=== PATIENT | female | born 1940 | race Caucasian/White ===

== ENCOUNTER 2023-04-09 09:31 | Inpatient (IN) | payer MEDICARE ==
[2023-04-09] MEDS ORDERED: methylPREDNISolone Sod Succ/PF 125 MG/2 ML VIAL ONE (10:14)
[2023-04-09] MEDS ORDERED: Albuterol 2.5 MG (3 mL) NEB ONE (10:14)
[2023-04-09 10:23] LABS: #Monocytes 0.9 thou/uL (0.11-0.59); #Neutrophils 7.8 thou/uL (1.40-6.50); %Basophils 0.2 % (0.0-1.0); %Eosinophils 0.1 % (0.0-10.0); %Lymphocytes 16.9 % (21.0-51.0); %Monocytes 8.4 % (0.0-10.0); %Neutrophils 73.9 % (42.0-75.0); Hematocrit 36.7 % (36.0-47.0); Hemoglobin 11.9 g/dL (12.0-16.0); Mean Corpuscular HGB CONC 32.4 g/dL (32.0-36.0); Mean Corpuscular Hemoglobin 30.8 pg (27.0-31.0); Mean Corpuscular Volume 95.1 fl (78.0-98.0); Mean Platelet Volume 9.8 fL (7.4-10.4); Platelet Count 266 10x3/uL (130-400); RBC Distribution Width 15.4 % (11.5-14.5); Red Blood Cell (RBC) Count 3.86 mill/uL (4.20-5.40); White Blood Cell (WBC) Count 10.6 10x3/uL (4.8-10.8)
[2023-04-09] MEDS ORDERED: Ipratropium/Albuterol 3 ML NEB ONE ×2 (10:31→18:20)
[2023-04-09 10:37] LABS: ALT (SGPT) 28 U/L (8-55); AST (SGOT) 49 U/L (5-34); Albumin 3.4 g/dL (3.4-4.8); Alkaline Phosphatase 282 U/L (40-110); Anion Gap 15 mmol/L (10-20); BUN (Urea Nitrogen) 5 mg/dL (9.8-20.1); Calc. Creatinine Clearance 0 mL/min (70-130); Calcium 9.1 mg/dL (7.8-10.44); Carbon Dioxide 28 mmol/L (23-31); Chloride 92 mmol/L (98-107); Estimated GFR 92; Globulin 4.8 g/dL (2.4-3.5); Glucose 98 mg/dL (83-110); Potassium 3.8 mmol/L (3.5-5.1); Protein, Total 8.2 g/dL (5.8-8.1); Sodium 131 mmol/L (136-145)
[2023-04-09 10:39] LABS: Troponin I 0.026 ng/mL (< 0.028)
[2023-04-09] MEDS ORDERED: cefTRIAXone (ROCEPHIN) 2 GM VIAL ONE (10:52)
[2023-04-09] MEDS ORDERED: Azithromycin 500 MG VIAL ONE (10:52)
[2023-04-09] MEDS ORDERED: Sodium Chloride 0.9% 100 ML ONE (10:52)
[2023-04-09 10:55] LABS: SARS-CoV-2 NAA Rapid Test Not Detected (NotDetected)
[2023-04-09] MEDS ORDERED: Ondansetron ODT 4 MG TAB PO PRN (14:02)
[2023-04-09] MEDS ORDERED: Ondansetron PF 4 MG/2 ML Vial IVP PRN (14:02)
[2023-04-09] MEDS ORDERED: Ipratropium/Albuterol 3 ML NEB NEB PRN (14:19)
[2023-04-09 15:49] LABS: Troponin I 0.013 ng/mL (< 0.028)
[2023-04-09 16:35] LABS: Troponin I 0.025 ng/mL (< 0.028)
[2023-04-09] MEDS ORDERED: Ipratropium/Albuterol 3 ML NEB NEB SCH (19:00)
[2023-04-09] MEDS: Ipratropium/Albuterol 3 ML NEB NEB SCH ×3 (19:18→21:46)
[2023-04-09] MEDS: Mometasone 100 MCG HFA INHALER (RT USE) INH SCH (20:03)
[2023-04-09] MEDS: busPIRone HCl 10 MG TAB PO SCH (20:53)
[2023-04-09] MEDS: Metoprolol Tartrate 25 MG TAB PO SCH (20:53)
[2023-04-09] MEDS ORDERED: Non-Formulary Item 1 EACH (Budesonide/Glycopyr/Formoterol [Breztri Aerosphere Inhaler] 10 IH SCH (21:00)
[2023-04-09 21:53] VITALS: BMI 20.4
[2023-04-10] MEDS: Ipratropium/Albuterol 3 ML NEB NEB SCH ×5 (02:15→18:03)
[2023-04-10 05:28] LABS: #Monocytes 0.3 thou/uL (0.11-0.59); #Neutrophils 3.9 thou/uL (1.40-6.50); %Lymphocytes 15.9 % (21.0-51.0); %Monocytes 5.6 % (0.0-10.0); %Neutrophils 77.9 % (42.0-75.0); Hematocrit 34.6 % (36.0-47.0); Hemoglobin 11.1 g/dL (12.0-16.0); Mean Corpuscular HGB CONC 32.1 g/dL (32.0-36.0); Mean Corpuscular Hemoglobin 30.7 pg (27.0-31.0); Mean Corpuscular Volume 95.6 fl (78.0-98.0); Mean Platelet Volume 9.4 fL (7.4-10.4); Platelet Count 259 10x3/uL (130-400); RBC Distribution Width 15.3 % (11.5-14.5); Red Blood Cell (RBC) Count 3.62 mill/uL (4.20-5.40)
[2023-04-10 06:02] LABS: ALT (SGPT) 22 U/L (8-55); AST (SGOT) 30 U/L (5-34); Albumin 2.9 g/dL (3.4-4.8); Alkaline Phosphatase 227 U/L (40-110); Anion Gap 11 mmol/L (10-20); BUN (Urea Nitrogen) 12 mg/dL (9.8-20.1); Bilirubin, Total 0.4 mg/dL (0.2-1.2); Calc. Creatinine Clearance 68 mL/min (70-130); Calcium 8.6 mg/dL (7.8-10.44); Carbon Dioxide 32 mmol/L (23-31); Chloride 97 mmol/L (98-107); Estimated GFR 91; Glucose 172 mg/dL (83-110); Potassium 4.1 mmol/L (3.5-5.1); Protein, Total 6.9 g/dL (5.8-8.1); Sodium 136 mmol/L (136-145)
[2023-04-10] MEDS: Mometasone 100 MCG HFA INHALER (RT USE) INH SCH ×2 (07:43→18:04)
[2023-04-10] MEDS: Enoxaparin 40 MG (0.4 mL) SYRINGE SC SCH (08:51)
[2023-04-10] MEDS: busPIRone HCl 10 MG TAB PO SCH ×2 (08:52→20:12)
[2023-04-10] MEDS: Amlodipine 5 MG TAB PO SCH (08:52)
[2023-04-10] MEDS: predniSONE 20 MG TAB PO SCH (08:52)
[2023-04-10] MEDS: Azithromycin 250 MG TAB PO SCH (08:52)
[2023-04-10] MEDS: Metoprolol Tartrate 25 MG TAB PO SCH ×2 (08:52→20:12)
[2023-04-10] MEDS: HYDROcodone/Acetaminophen 10/325 mg Tablet PO PRN ×2 (10:53→20:11)
[2023-04-10] MEDS ORDERED: cefTRIAXone\\ROCEPHIN 1 GM in Sodium Chloride 0.9% 100 ML IVPB SCH (14:15)
[2023-04-11] MEDS: Ipratropium/Albuterol 3 ML NEB NEB SCH ×4 (07:42→22:09)
[2023-04-11] MEDS: Mometasone 100 MCG HFA INHALER (RT USE) INH SCH ×2 (07:43→18:47)
[2023-04-11] MEDS ORDERED: guaiFENesin 200 MG TAB PO PRN (08:52)
[2023-04-11] MEDS ORDERED: Benzonatate 100 MG CAP PO PRN (08:53)
[2023-04-11] MEDS: Guaifenesin DM 100-10/5 ML UDCUP PO PRN ×2 (13:41→23:55)
[2023-04-11] MEDS: guaiFENesin 200 MG TAB PO SCH ×4 (13:41→20:32)
[2023-04-11] MEDS: HYDROcodone/Acetaminophen 10/325 mg Tablet PO PRN (16:06)
[2023-04-11] MEDS: Azithromycin 250 MG TAB PO SCH (18:21)
[2023-04-11] MEDS: predniSONE 20 MG TAB PO SCH (18:21)
[2023-04-11] MEDS: Amlodipine 5 MG TAB PO SCH (18:21)
[2023-04-11] MEDS: Metoprolol Tartrate 25 MG TAB PO SCH ×2 (18:22→20:32)
[2023-04-11] MEDS: Enoxaparin 40 MG (0.4 mL) SYRINGE SC SCH (18:22)
[2023-04-11] MEDS: busPIRone HCl 10 MG TAB PO SCH ×2 (18:22→20:32)
[2023-04-12] MEDS: guaiFENesin 200 MG TAB PO SCH ×4 (04:04→13:18)
[2023-04-12 05:57] LABS: #Monocytes 1.2 thou/uL (0.11-0.59); #Neutrophils 6.9 thou/uL (1.40-6.50); %Basophils 0.1 % (0.0-1.0); %Eosinophils 0.1 % (0.0-10.0); %Lymphocytes 24.6 % (21.0-51.0); %Monocytes 11.2 % (0.0-10.0); %Neutrophils 63.2 % (42.0-75.0); Hematocrit 37.1 % (36.0-47.0); Hemoglobin 11.8 g/dL (12.0-16.0); Mean Corpuscular HGB CONC 31.8 g/dL (32.0-36.0); Mean Corpuscular Hemoglobin 30.2 pg (27.0-31.0); Mean Corpuscular Volume 94.9 fl (78.0-98.0); Mean Platelet Volume 9.2 fL (7.4-10.4); Platelet Count 333 10x3/uL (130-400); RBC Distribution Width 15.2 % (11.5-14.5); Red Blood Cell (RBC) Count 3.91 mill/uL (4.20-5.40); White Blood Cell (WBC) Count 10.9 10x3/uL (4.8-10.8)
[2023-04-12 06:32] LABS: ALT (SGPT) 32 U/L (8-55); AST (SGOT) 51 U/L (5-34); Albumin 3.1 g/dL (3.4-4.8); Alkaline Phosphatase 230 U/L (40-110); Anion Gap 9 mmol/L (10-20); BUN (Urea Nitrogen) 13 mg/dL (9.8-20.1); Bilirubin, Total 0.6 mg/dL (0.2-1.2); Calc. Creatinine Clearance 70 mL/min (70-130); Calcium 8.6 mg/dL (7.8-10.44); Carbon Dioxide 33 mmol/L (23-31); Chloride 97 mmol/L (98-107); Estimated GFR 91; Globulin 3.9 g/dL (2.4-3.5); Glucose 101 mg/dL (83-110); Potassium 3.6 mmol/L (3.5-5.1); Sodium 135 mmol/L (136-145)
[2023-04-12] MEDS: Mometasone 100 MCG HFA INHALER (RT USE) INH SCH (07:16)
[2023-04-12] MEDS: Ipratropium/Albuterol 3 ML NEB NEB SCH ×2 (07:17→14:10)
[2023-04-12] MEDS: Enoxaparin 40 MG (0.4 mL) SYRINGE SC SCH (09:38)
[2023-04-12] MEDS: Amlodipine 5 MG TAB PO SCH (09:39)
[2023-04-12] MEDS: predniSONE 20 MG TAB PO SCH (09:39)
[2023-04-12] MEDS: Azithromycin 250 MG TAB PO SCH (09:39)
[2023-04-12] MEDS: busPIRone HCl 10 MG TAB PO SCH (09:40)
[2023-04-12] MEDS: Metoprolol Tartrate 25 MG TAB PO SCH (09:40)
[2023-04-12 15:29] VITALS: BP 142/68; TEMP 97.6
== END 2023-04-12 18:20 | disposition home or self-care (01) | DRG 193 ==
LOC: ERS 09:31 → ERHOLD 12:51 → 2SW 20:26 → OBSVTOIN 04-10 11:22
PROVIDERS: ADMIT Emergency Medicine; ATTEND Emergency Medicine
DX: J18.9 Pneumonia, unspecified organism (principal); J96.01 Acute respiratory failure with hypoxia; E87.1 Hypo-osmolality and hyponatremia; J44.1 Chronic obstructive pulmonary disease with (acute) exacerbation; E46 Unspecified protein-calorie malnutrition; M54.50 Low back pain, unspecified; I11.0 Hypertensive heart disease with heart failure; I50.9 Heart failure, unspecified; Z11.52 Encounter for screening for COVID-19; G89.29 Other chronic pain; F41.8 Other specified anxiety disorders; R74.01 Elevation of levels of liver transaminase levels; Z88.0 Allergy status to penicillin; Z91.013 Allergy to seafood; Z88.8 Allergy status to other drugs, medicaments and biological substances; Z68.20 Body mass index [BMI] 20.0-20.9, adult; Z79.899 Other long term (current) drug therapy; Z90.49 Acquired absence of other specified parts of digestive tract; Z90.710 Acquired absence of both cervix and uterus; Z82.49 Family history of ischemic heart disease and other diseases of the circulatory system; Z87.891 Personal history of nicotine dependence
CPT/HCPCS: 36415; 71045; 80053; 83605; 83880; 84145; 84484; 85025; 87040; 93005; 93306; 94640; 94664; 96365; 96367; 96372; 96375; G0378; J0456; J0696; J1650; J2930; J3490; J7512; J7611; J7620

== ENCOUNTER 2023-06-03 19:43 | Inpatient (IN) | payer MEDICARE ==
[2023-06-03 20:54] LABS: Bacteria/HPF 2+ HPF (None Seen); Bilirubin Negative (Negative); Blood, Urine Negative (Negative); CAUTI Indications for Culture Alt mental st,lethar; Clarity Clear (Clear); Glucose, Urine (Dipstick) Normal (Negative); Ketone, Urine 20 mg/dL (Negative); Leukocyte Negative Leu/uL (Negative); Mucous/LPF Rare LPF (<2+); Nitrite Negative (Negative); Protein, Urine (Dipstick) 30 mg/dL (Neg-Trace); RBC/HPF 0-3 HPF (0-3); Specific Gravity, Urine 1.019 (1.002-1.036); Squamous Epithelial None Seen HPF (0-3); WBC/HPF 0-3 HPF (0-3); Yeast-Budding Rare HPF (None Seen); pH, Urine 6.5 (5.0-9.0)
[2023-06-03 21:01] LABS: #Neutrophils 6.4 thou/uL (1.40-6.50); %Basophils 0.2 % (0.0-1.0); %Lymphocytes 18.4 % (21.0-51.0); %Monocytes 10.8 % (0.0-10.0); %Neutrophils 70.3 % (42.0-75.0); Hematocrit 30.1 % (36.0-47.0); Hemoglobin 9.9 g/dL (12.0-16.0); Mean Corpuscular HGB CONC 32.9 g/dL (32.0-36.0); Mean Corpuscular Hemoglobin 31.6 pg (27.0-31.0); Mean Corpuscular Volume 96.2 fl (78.0-98.0); Mean Platelet Volume 10.4 fL (7.4-10.4); Platelet Count 186 10x3/uL (130-400); RBC Distribution Width 14.3 % (11.5-14.5); Red Blood Cell (RBC) Count 3.13 mill/uL (4.20-5.40); White Blood Cell (WBC) Count 9.1 10x3/uL (4.8-10.8)
[2023-06-03 21:12] LABS: Urine Culture Reflex No No
[2023-06-03 21:25] LABS: ALT (SGPT) 19 U/L (8-55); AST (SGOT) 33 U/L (5-34); Alkaline Phosphatase 262 U/L (40-110); Anion Gap 14 mmol/L (10-20); BUN (Urea Nitrogen) 13 mg/dL (9.8-20.1); Bilirubin, Total 1.5 mg/dL (0.2-1.2); Calc. Creatinine Clearance 0 mL/min (70-130); Calcium 8.5 mg/dL (7.8-10.44); Carbon Dioxide 26 mmol/L (23-31); Chloride 95 mmol/L (98-107); Estimated GFR 92; Globulin 3.6 g/dL (2.4-3.5); Glucose 132 mg/dL (83-110); Lipase 29 U/L (8-78); Protein, Total 6.6 g/dL (5.8-8.1); Sodium 132 mmol/L (136-145)
[2023-06-03 21:34] LABS: Critical Call Chem Troponin I NUR.SH13@2134; Troponin I 0.698 ng/mL (< 0.028)
[2023-06-03] MEDS ORDERED: Potassium Chloride 20 MEQ TAB ONE (22:09)
[2023-06-03] MEDS ORDERED: Furosemide 40 MG (4 mL) VIAL ONE (22:09)
[2023-06-03] MEDS ORDERED: Aspirin Chewable 81 MG TAB ONE (22:10)
[2023-06-03] MEDS ORDERED: LevoFLOXacin 750 mg/D5W 150 ml Premix Bag ONE (22:10)
[2023-06-03] MEDS ORDERED: Vancomycin 1 GM/200 ML (FROZEN) BAG ONE (22:10)
[2023-06-03 23:34] LABS: Influenza A by NAA Not Detected (NotDetected); Influenza B by NAA Not Detected (NotDetected); SARS-CoV-2 NAA Rapid Test Not Detected (NotDetected)
[2023-06-03] MEDS ORDERED: Enoxaparin 60 MG (0.6 mL) SYRINGE ONE (23:39)
[2023-06-04] MEDS ORDERED: fentaNYL 50 mcg/mL 1 mL Vial ONE (00:41)
[2023-06-04] MEDS ORDERED: Ipratropium/Albuterol 3 ML NEB NEB PRN (02:23)
[2023-06-04] MEDS ORDERED: Ondansetron ODT 4 MG TAB PO PRN (02:25)
[2023-06-04] MEDS ORDERED: Ondansetron PF 4 MG/2 ML Vial IVP PRN (02:25)
[2023-06-04] MEDS ORDERED: Acetaminophen 650 MG Suppository PR PRN (02:25)
[2023-06-04] MEDS ORDERED: Electrolyte Replacement Protocol 1 EACH FS PRN (02:31)
[2023-06-04 04:00] LABS: Critical Call Chem Troponin I RESULT DECREASING; Troponin I 0.513 ng/mL (< 0.028)
[2023-06-04] MEDS ORDERED: HYDROcodone/Acetaminophen 5/325 mg Tablet ONE ×3 (05:32→14:09)
[2023-06-04] MEDS: HYDROcodone/Acetaminophen 5/325 mg Tablet PO PRN (05:33)
[2023-06-04] MEDS: Cefepime 1 GM in Sodium Chloride 0.9% 100 ML IVPB SCH (05:57)
[2023-06-04 06:45] LABS: Critical Call Chem Troponin I NUR.SH13@0645; Troponin I 0.565 ng/mL (< 0.028)
[2023-06-04] MEDS: Furosemide 20 MG (2 mL) VIAL SLOW IVP SCH (07:49)
[2023-06-04] MEDS ORDERED: Ipratropium/Albuterol 3 ML NEB ONE ×2 (08:17→17:37)
[2023-06-04] MEDS: Mometasone 100 MCG HFA INHALER (RT USE) INH SCH (08:30)
[2023-06-04] MEDS: Ipratropium/Albuterol 3 ML NEB NEB SCH (08:32)
[2023-06-04] MEDS ORDERED: Amlodipine 5 MG TAB ONE (08:46)
[2023-06-04] MEDS ORDERED: Famotidine 20 MG TAB ONE (08:46)
[2023-06-04] MEDS: Amlodipine 5 MG TAB PO SCH (09:39)
[2023-06-04] MEDS: Famotidine 20 MG TAB PO SCH (09:39)
[2023-06-04] MEDS: Famotidine/PF 20 mg/2ml Vial SLOW IVP SCH (09:39)
[2023-06-04] MEDS: Ursodiol 300 MG CAP PO SCH (11:01)
[2023-06-04] MEDS: busPIRone HCl 10 MG TAB PO SCH (11:01)
[2023-06-04 11:23] LABS: Albumin 2.9 g/dL (3.4-4.8)
[2023-06-04 11:24] LABS: Chloride 98 mmol/L (98-107); Sodium 136 mmol/L (136-145)
[2023-06-04 11:25] LABS: Calcium 8.5 mg/dL (7.8-10.44)
[2023-06-04 11:26] LABS: Globulin 3.5 g/dL (2.4-3.5); Glucose 109 mg/dL (83-110); Protein, Total 6.4 g/dL (5.8-8.1)
[2023-06-04 11:27] LABS: Anion Gap 12 mmol/L (10-20); Carbon Dioxide 29 mmol/L (23-31)
[2023-06-04 11:28] LABS: Bilirubin, Total 1.4 mg/dL (0.2-1.2)
[2023-06-04 11:29] LABS: Alkaline Phosphatase 238 U/L (40-110); Calc. Creatinine Clearance 68 mL/min (70-130); Estimated GFR 91
[2023-06-04 11:30] LABS: BUN (Urea Nitrogen) 12 mg/dL (9.8-20.1)
[2023-06-04 11:31] LABS: AST (SGOT) 31 U/L (5-34)
[2023-06-04 11:32] LABS: ALT (SGPT) Less than 35 U/L (8-55)
[2023-06-04] MEDS ORDERED: Furosemide 20 MG (2 mL) VIAL ONE (14:08)
[2023-06-04] MEDS ORDERED: Potassium Chloride 20 MEQ TAB ONE (14:08)
[2023-06-04] MEDS ORDERED: Cefepime 1 GM VIAL ONE (14:09)
[2023-06-04] MEDS ORDERED: Sodium Chloride 0.9% 100 ML ONE (14:12)
[2023-06-04] MEDS: Potassium Chloride 20 MEQ TAB PO SCH (14:17)
[2023-06-04] MEDS: Vancomycin (BATCH) 1.25 GM in Premix 1 BAG IVPB SCH (17:55)
[2023-06-04] MEDS: HYDROcodone/Acetaminophen 10/325 mg Tablet PO PRN (18:25)
[2023-06-04] MEDS: Carvedilol 3.125 MG TAB PO SCH (22:01)
[2023-06-05 05:01] LABS: Vancomycin, Random 11.2 ug/mL (See Comment)
[2023-06-05 07:24] LABS: Anion Gap 14 mmol/L (10-20); BUN (Urea Nitrogen) 11 mg/dL (9.8-20.1); Calc. Creatinine Clearance 62 mL/min (70-130); Calcium 8.4 mg/dL (7.8-10.44); Carbon Dioxide 25 mmol/L (23-31); Chloride 98 mmol/L (98-107); Estimated GFR 89; Glucose 113 mg/dL (83-110); Potassium 3.2 mmol/L (3.5-5.1); Sodium 134 mmol/L (136-145)
[2023-06-05] MEDS: Vancomycin 1 GM in Premix 1 BAG IVPB SCH (09:33)
[2023-06-05] MEDS: Potassium Chloride 20 MEQ TAB PO SCH (09:33)
[2023-06-05] MEDS: Vancomycin HCl 750 MG in Sodium Chloride 0.9% 250 ML 250 ML IVPB SCH (20:52)
[2023-06-06 04:55] LABS: #Eosinphils 0.1 thou/uL (0.0-0.7); #Monocytes 0.9 thou/uL (0.11-0.59); #Neutrophils 2.9 thou/uL (1.40-6.50); %Basophils 0.6 % (0.0-1.0); %Lymphocytes 28.9 % (21.0-51.0); %Monocytes 15.7 % (0.0-10.0); %Neutrophils 52.6 % (42.0-75.0); Hematocrit 30.7 % (36.0-47.0); Hemoglobin 9.6 g/dL (12.0-16.0); Mean Corpuscular HGB CONC 31.3 g/dL (32.0-36.0); Mean Corpuscular Hemoglobin 30.7 pg (27.0-31.0); Mean Corpuscular Volume 98.1 fl (78.0-98.0); Mean Platelet Volume 10.8 fL (7.4-10.4); Platelet Count 177 10x3/uL (130-400); Red Blood Cell (RBC) Count 3.13 mill/uL (4.20-5.40); White Blood Cell (WBC) Count 5.4 10x3/uL (4.8-10.8)
[2023-06-06 05:10] LABS: Anion Gap 11 mmol/L (10-20); BUN (Urea Nitrogen) 8 mg/dL (9.8-20.1); Calc. Creatinine Clearance 68 mL/min (70-130); Calcium 8.3 mg/dL (7.8-10.44); Carbon Dioxide 32 mmol/L (23-31); Chloride 99 mmol/L (98-107); Estimated GFR 91; Glucose 94 mg/dL (83-110); Potassium 3.1 mmol/L (3.5-5.1); Sodium 139 mmol/L (136-145)
[2023-06-06 05:15] LABS: Vancomycin, Random 14.9 ug/mL (See Comment)
[2023-06-06] MEDS: Potassium Chloride 20 MEQ TAB PO SCH ×2 (09:13→16:46)
[2023-06-06 14:15] LABS: Potassium 3.3 mmol/L (3.5-5.1)
[2023-06-06 20:12] LABS: Potassium 3.7 mmol/L (3.5-5.1)
[2023-06-06] MEDS: Acetaminophen 325 MG TAB PO PRN (20:14)
[2023-06-06] MEDS ORDERED: Melatonin 3 MG TAB PO PRN (21:42)
[2023-06-07 04:54] LABS: #Eosinphils 0.1 thou/uL (0.0-0.7); #Monocytes 0.9 thou/uL (0.11-0.59); #Neutrophils 6.4 thou/uL (1.40-6.50); %Basophils 0.3 % (0.0-1.0); %Lymphocytes 21.3 % (21.0-51.0); %Monocytes 9.5 % (0.0-10.0); %Neutrophils 67.2 % (42.0-75.0); Hematocrit 32.3 % (36.0-47.0); Hemoglobin 10.3 g/dL (12.0-16.0); Mean Corpuscular HGB CONC 31.9 g/dL (32.0-36.0); Mean Corpuscular Hemoglobin 31.3 pg (27.0-31.0); Mean Corpuscular Volume 98.2 fl (78.0-98.0); Mean Platelet Volume 11.1 fL (7.4-10.4); Platelet Count 223 10x3/uL (130-400); Red Blood Cell (RBC) Count 3.29 mill/uL (4.20-5.40); White Blood Cell (WBC) Count 9.5 10x3/uL (4.8-10.8)
[2023-06-07 05:18] LABS: Anion Gap 12 mmol/L (10-20); BUN (Urea Nitrogen) 8 mg/dL (9.8-20.1); Calc. Creatinine Clearance 64 mL/min (70-130); Calcium 8.6 mg/dL (7.8-10.44); Carbon Dioxide 29 mmol/L (23-31); Chloride 98 mmol/L (98-107); Estimated GFR 89; Glucose 111 mg/dL (83-110); Magnesium 1.8 mg/dL (1.6-2.6); Potassium 4.2 mmol/L (3.5-5.1); Sodium 135 mmol/L (136-145)
[2023-06-07] MEDS: Furosemide 40 MG TAB PO SCH (09:04)
[2023-06-07] MEDS: Magnesium 2 GM/50 ML(in water) 2 GM in Premix 1 BAG IVPB SCH (09:04)
[2023-06-07] MEDS: HYDROcodone/Acetaminophen 10/325 mg Tablet PO PRN (10:22)
[2023-06-07 18:14] LABS: Bacteria/HPF None Seen HPF (None Seen); Bilirubin Negative (Negative); Blood, Urine Negative (Negative); CAUTI Indications for Culture Alt mental st,lethar; Clarity Turbid (Clear); Glucose, Urine (Dipstick) Normal (Negative); Ketone, Urine Negative (Negative); Leukocyte Negative Leu/uL (Negative); Nitrite Negative (Negative); Protein, Urine (Dipstick) Negative (Neg-Trace); RBC/HPF 0-3 HPF (0-3); Specific Gravity, Urine 1.012 (1.002-1.036); Squamous Epithelial 0-3 HPF (0-3); Urine Culture Reflex No No; Urobilinogen Normal mg/dL (Less than 2); WBC/HPF 0-3 HPF (0-3)
[2023-06-07] MEDS: traZODone HCl 50 MG TAB PO SCH (22:06)
[2023-06-08 05:24] LABS: Anion Gap 9 mmol/L (10-20); BUN (Urea Nitrogen) 9 mg/dL (9.8-20.1); CRP (Inflammatory) 7.88 mg/dL (= or < 0.5); Calc. Creatinine Clearance 67 mL/min (70-130); Calcium 8.4 mg/dL (7.8-10.44); Carbon Dioxide 33 mmol/L (23-31); Chloride 98 mmol/L (98-107); Estimated GFR 91; Glucose 100 mg/dL (83-110); Potassium 3.3 mmol/L (3.5-5.1); Sodium 137 mmol/L (136-145)
[2023-06-08 05:26] LABS: #Basophils Less than 0.0 thou/uL (0.0-0.2); #Eosinphils 0.1 thou/uL (0.0-0.7); #Monocytes 0.9 thou/uL (0.11-0.59); #Neutrophils 4.5 thou/uL (1.40-6.50); %Basophils 0.3 % (0.0-1.0); %Eosinophils 1.6 % (0.0-10.0); %Monocytes 11.4 % (0.0-10.0); %Neutrophils 58.3 % (42.0-75.0); Hematocrit 32.1 % (36.0-47.0); Hemoglobin 10.3 g/dL (12.0-16.0); Mean Corpuscular HGB CONC 32.1 g/dL (32.0-36.0); Mean Corpuscular Hemoglobin 30.8 pg (27.0-31.0); Mean Corpuscular Volume 96.1 fl (78.0-98.0); Platelet Count 199 10x3/uL (130-400); Red Blood Cell (RBC) Count 3.34 mill/uL (4.20-5.40); White Blood Cell (WBC) Count 7.7 10x3/uL (4.8-10.8)
[2023-06-08 05:36] LABS: Vancomycin, Random 12.3 ug/mL (See Comment)
[2023-06-08] MEDS: Potassium Chloride 20 MEQ TAB PO SCH (09:07)
[2023-06-08] MEDS: FLU VACC QS2023(65UP)/MF59C/PF 60 MCG/0.5 ML SYRINGE IM ONE (15:03)
[2023-06-08] MEDS: Vancomycin 1 GM in Premix 1 BAG IVPB SCH (21:34)
[2023-06-08] MEDS: traZODone HCl 50 MG TAB PO PRN (23:34)
[2023-06-09 05:45] LABS: #Basophils 0.05 10x3/uL (0.0-0.2); %Basophils 0.7 % (0.0-1.0); %Eosinophils 2.8 % (0.0-10.0); %Lymphocytes 29.6 % (21.0-51.0); %Monocytes 13.6 % (0.0-10.0); Hematocrit 31.2 % (36.0-47.0); Hemoglobin 9.9 g/dL (12.0-16.0); Mean Corpuscular HGB CONC 31.7 g/dL (32.0-36.0); Mean Corpuscular Hemoglobin 31.4 pg (27.0-31.0); Mean Platelet Volume 10.7 fL (7.4-10.4); Platelet Count 215 10x3/uL (130-400); RBC Distribution Width 14.2 % (11.5-14.5); Red Blood Cell (RBC) Count 3.15 mill/uL (4.20-5.40)
[2023-06-09 06:04] LABS: Anion Gap 8 mmol/L (10-20); BUN (Urea Nitrogen) 9 mg/dL (9.8-20.1); Calc. Creatinine Clearance 62 mL/min (70-130); Calcium 8.5 mg/dL (7.8-10.44); Carbon Dioxide 34 mmol/L (23-31); Chloride 100 mmol/L (98-107); Estimated GFR 90; Glucose 93 mg/dL (83-110); Potassium 3.5 mmol/L (3.5-5.1); Sodium 138 mmol/L (136-145)
[2023-06-09] MEDS: Potassium Chloride 20 MEQ TAB PO SCH (08:41)
[2023-06-10 05:55] LABS: #Basophils Less than 0.03 10x3/uL (0.0-0.2); %Basophils 0.4 % (0.0-1.0); %Eosinophils 2.3 % (0.0-10.0); %Lymphocytes 26.4 % (21.0-51.0); %Monocytes 12.8 % (0.0-10.0); %Neutrophils 57.9 % (42.0-75.0); Hematocrit 32.3 % (36.0-47.0); Hemoglobin 10.3 g/dL (12.0-16.0); Mean Corpuscular HGB CONC 31.9 g/dL (32.0-36.0); Mean Corpuscular Hemoglobin 31.7 pg (27.0-31.0); Mean Corpuscular Volume 99.4 fL (78.0-98.0); Mean Platelet Volume 10.6 fL (7.4-10.4); Platelet Count 211 10x3/uL (130-400); Red Blood Cell (RBC) Count 3.25 mill/uL (4.20-5.40)
[2023-06-10 06:16] LABS: Vancomycin, Random 21.5 ug/mL (See Comment)
[2023-06-10 06:18] LABS: Anion Gap 11 mmol/L (10-20); BUN (Urea Nitrogen) 9 mg/dL (9.8-20.1); Calc. Creatinine Clearance 61 mL/min (70-130); Calcium 8.7 mg/dL (7.8-10.44); Carbon Dioxide 32 mmol/L (23-31); Chloride 101 mmol/L (98-107); Estimated GFR 90; Glucose 94 mg/dL (83-110); Potassium 3.9 mmol/L (3.5-5.1); Sodium 140 mmol/L (136-145)
[2023-06-10] MEDS: HYDROcodone/Acetaminophen 10/325 mg Tablet PO PRN (10:26)
[2023-06-11 05:32] LABS: #Basophils 0.03 10x3/uL (0.0-0.2); %Basophils 0.5 % (0.0-1.0); %Eosinophils 2.5 % (0.0-10.0); %Lymphocytes 24.7 % (21.0-51.0); %Monocytes 11.6 % (0.0-10.0); %Neutrophils 60.5 % (42.0-75.0); Hematocrit 31.3 % (36.0-47.0); Hemoglobin 10.1 g/dL (12.0-16.0); Mean Corpuscular HGB CONC 32.3 g/dL (32.0-36.0); Mean Corpuscular Hemoglobin 32.4 pg (27.0-31.0); Mean Corpuscular Volume 100.3 fL (78.0-98.0); Mean Platelet Volume 10.7 fL (7.4-10.4); Platelet Count 211 10x3/uL (130-400); RBC Distribution Width 14.1 % (11.5-14.5); Red Blood Cell (RBC) Count 3.12 mill/uL (4.20-5.40)
[2023-06-11 05:54] LABS: Vancomycin, Random 24.8 ug/mL (See Comment)
[2023-06-11 05:55] LABS: Anion Gap 13 mmol/L (10-20); BUN (Urea Nitrogen) 10 mg/dL (9.8-20.1); Calc. Creatinine Clearance 60 mL/min (70-130); Calcium 8.5 mg/dL (7.8-10.44); Carbon Dioxide 30 mmol/L (23-31); Chloride 101 mmol/L (98-107); Estimated GFR 89; Glucose 90 mg/dL (83-110); Potassium 3.8 mmol/L (3.5-5.1); Sodium 140 mmol/L (136-145)
[2023-06-11] MEDS ORDERED: Sodium Bicarbonate 2.5 MEQ/5 ML SDV ONE (10:12)
[2023-06-11] MEDS ORDERED: Lidocaine 1% PF 5 ML VIAL ONE (10:12)
[2023-06-11] MEDS: Fluconazole 100 MG TAB PO SCH (20:57)
[2023-06-12 05:47] LABS: #Basophils 0.04 10x3/uL (0.0-0.2); %Basophils 0.6 % (0.0-1.0); %Eosinophils 2.2 % (0.0-10.0); %Lymphocytes 22.9 % (21.0-51.0); %Monocytes 11.8 % (0.0-10.0); %Neutrophils 62.2 % (42.0-75.0); Hematocrit 30.5 % (36.0-47.0); Hemoglobin 9.6 g/dL (12.0-16.0); Mean Corpuscular HGB CONC 31.5 g/dL (32.0-36.0); Mean Corpuscular Hemoglobin 31.6 pg (27.0-31.0); Mean Corpuscular Volume 100.3 fL (78.0-98.0); Mean Platelet Volume 10.5 fL (7.4-10.4); Platelet Count 195 10x3/uL (130-400); Red Blood Cell (RBC) Count 3.04 mill/uL (4.20-5.40)
[2023-06-12 06:16] LABS: Anion Gap 11 mmol/L (10-20); BUN (Urea Nitrogen) 12 mg/dL (9.8-20.1); Calc. Creatinine Clearance 54 mL/min (70-130); Calcium 8.9 mg/dL (7.8-10.44); Carbon Dioxide 33 mmol/L (23-31); Chloride 101 mmol/L (98-107); Estimated GFR 88; Glucose 97 mg/dL (83-110); Potassium 3.6 mmol/L (3.5-5.1); Sodium 141 mmol/L (136-145)
[2023-06-13 05:16] LABS: #Basophils 0.05 10x3/uL (0.0-0.2); %Basophils 0.7 % (0.0-1.0); %Eosinophils 1.9 % (0.0-10.0); %Lymphocytes 26.7 % (21.0-51.0); %Monocytes 11.7 % (0.0-10.0); %Neutrophils 58.6 % (42.0-75.0); Hematocrit 32.9 % (36.0-47.0); Hemoglobin 10.2 g/dL (12.0-16.0); Mean Corpuscular Hemoglobin 30.8 pg (27.0-31.0); Mean Corpuscular Volume 99.4 fL (78.0-98.0); Mean Platelet Volume 10.2 fL (7.4-10.4); Platelet Count 222 10x3/uL (130-400); Red Blood Cell (RBC) Count 3.31 mill/uL (4.20-5.40)
[2023-06-13 05:50] LABS: Anion Gap 11 mmol/L (10-20); BUN (Urea Nitrogen) 11 mg/dL (9.8-20.1); Calc. Creatinine Clearance 53 mL/min (70-130); Calcium 9.3 mg/dL (7.8-10.44); Carbon Dioxide 34 mmol/L (23-31); Chloride 99 mmol/L (98-107); Estimated GFR 88; Glucose 96 mg/dL (83-110); Potassium 4.4 mmol/L (3.5-5.1); Sodium 140 mmol/L (136-145)
[2023-06-14 05:14] LABS: #Basophils 0.03 10x3/uL (0.0-0.2); %Basophils 0.6 % (0.0-1.0); %Eosinophils 2.1 % (0.0-10.0); %Lymphocytes 28.1 % (21.0-51.0); %Neutrophils 53.8 % (42.0-75.0); Hemoglobin 9.2 g/dL (12.0-16.0); Mean Corpuscular HGB CONC 31.7 g/dL (32.0-36.0); Mean Corpuscular Hemoglobin 31.6 pg (27.0-31.0); Mean Corpuscular Volume 99.7 fL (78.0-98.0); Mean Platelet Volume 10.2 fL (7.4-10.4); Platelet Count 201 10x3/uL (130-400); RBC Distribution Width 13.8 % (11.5-14.5); Red Blood Cell (RBC) Count 2.91 mill/uL (4.20-5.40)
[2023-06-14 05:40] LABS: Anion Gap 10 mmol/L (10-20); BUN (Urea Nitrogen) 11 mg/dL (9.8-20.1); Calc. Creatinine Clearance 0 mL/min (70-130); Calcium 8.7 mg/dL (7.8-10.44); Carbon Dioxide 33 mmol/L (23-31); Chloride 99 mmol/L (98-107); Estimated GFR 89; Glucose 88 mg/dL (83-110); Potassium 3.5 mmol/L (3.5-5.1); Sodium 138 mmol/L (136-145)
[2023-06-14] MEDS: Potassium Chloride 20 MEQ TAB PO SCH (08:15)
[2023-06-14 14:34] VITALS: BP 107/57; TEMP 98.2
== END 2023-06-14 14:37 | DRG 871 ==
LOC: ERS 19:43 → ERHOLD 06-04 02:25 → 2NO 06-04 18:20 → T4-A 06-08 14:48
PROVIDERS: ADMIT Student in an Organized Health Care Education/Training Program; ATTEND Internal Medicine
PROC: 3E03329 Introduction of Other Anti-infective into Peripheral Vein, Percutaneous Approach (ICD-10-PCS; 2023-06-04)
PROC: 02HV33Z Insertion of Infusion Device into Superior Vena Cava, Percutaneous Approach (ICD-10-PCS; principal; 2023-06-11)
PROC: B5181ZA Fluoroscopy of Superior Vena Cava using Low Osmolar Contrast, Guidance (ICD-10-PCS; 2023-06-11)
DX: A41.9 Sepsis, unspecified organism (principal); G93.41 Metabolic encephalopathy; I50.33 Acute on chronic diastolic (congestive) heart failure; I21.A1 Myocardial infarction type 2; J96.10 Chronic respiratory failure, unspecified whether with hypoxia or hypercapnia; E87.1 Hypo-osmolality and hyponatremia; J44.9 Chronic obstructive pulmonary disease, unspecified; I11.0 Hypertensive heart disease with heart failure; F41.9 Anxiety disorder, unspecified; E87.6 Hypokalemia; K74.60 Unspecified cirrhosis of liver; D64.9 Anemia, unspecified; Z91.041 Radiographic dye allergy status; Z88.0 Allergy status to penicillin; Z79.899 Other long term (current) drug therapy; Z90.49 Acquired absence of other specified parts of digestive tract; Z90.710 Acquired absence of both cervix and uterus; Z82.49 Family history of ischemic heart disease and other diseases of the circulatory system
CPT/HCPCS: 36415; 36416; 36569; 51701; 70450; 71045; 72192; 74176; 76700; 76942; 77001; 80048; 80053; 80202; 81001; 82140; 82550; 82565; 83605; 83690; 83735; 83880; 84484; 85025; 86140; 87040; 87077; 87086; 87149; 87186; 87633; 87798; 87807; 93005; 93306; 93798; 94640; 94760; 96361; 96365; 96366; 96368; 96372; 96375; 97139; C1751; J0692; J0878; J1650; J1940; J1956; J3010; J3370; J3370-JW; J3475; J3490; J7050; J7620; S0028